=== PATIENT | male | born 1945 | race Caucasian/White ===

== ENCOUNTER 2023-06-28 11:09 | Outpatient (RCR) | payer MEDICARE, BC, SELFPAY | END 2023-06-28 23:59 | disposition home or self-care (01) | LOC: RPT 11:09 | PROVIDERS: ATTENDING PHYSICIAN Physical Medicine & Rehabilitation; FAMILY PHYSICIAN Student in an Organized Health Care Education/Training Program | DX: M48.061 Spinal stenosis, lumbar region without neurogenic claudication (principal); R26.89 Other abnormalities of gait and mobility; Z73.6 Limitation of activities due to disability; R26.2 Difficulty in walking, not elsewhere classified; M62.81 Muscle weakness (generalized) | CPT/HCPCS: 97110; 97112; 97163 ==

== ENCOUNTER → 2023-08-05 06:31 | Day surgery (SDC) | payer MEDICARE, BC, SELFPAY ==
[2023-08-05 09:39] LABS: Glucose - Point of Care 113 mg/dl (70-99)
== END ==
LOC: GI 06:31
PROVIDERS: ATTENDING PHYSICIAN Internal Medicine Gastroenterology
DX: Z12.11 Encounter for screening for malignant neoplasm of colon (principal); D12.3 Benign neoplasm of transverse colon; K63.5 Polyp of colon; K57.30 Diverticulosis of large intestine without perforation or abscess without bleeding; K64.0 First degree hemorrhoids
CPT/HCPCS: 45385; 45380; 88305; 82962

== ENCOUNTER → 2024-05-05 13:18 | Outpatient (REF) | payer MEDICARE, BC, SELFPAY | LOC: RAD 13:18 | PROVIDERS: ATTENDING PHYSICIAN Student in an Organized Health Care Education/Training Program; OTHER PHYSICIAN Psychiatry & Neurology Neurology | DX: Z77.018 Contact with and (suspected) exposure to other hazardous metals (principal) | CPT/HCPCS: 70030 ==

== ENCOUNTER → 2024-06-16 07:03 | Outpatient (REF) | payer MEDICARE, BC, SELFPAY | LOC: MRI 07:03 | PROVIDERS: ATTENDING PHYSICIAN Orthopaedic Surgery; FAMILY PHYSICIAN Student in an Organized Health Care Education/Training Program | DX: M25.511 Pain in right shoulder (principal) | CPT/HCPCS: 73221 ==

== ENCOUNTER 2025-01-01 12:08 | Outpatient (RCR) | payer MEDICARE, BC, SELFPAY | END 2025-01-01 23:59 | disposition home or self-care (01) | LOC: RST 12:08 | PROVIDERS: ATTENDING PHYSICIAN Psychiatry & Neurology Neurology; FAMILY PHYSICIAN Student in an Organized Health Care Education/Training Program | DX: R41.89 Other symptoms and signs involving cognitive functions and awareness (principal); F06.70 Mild neurocognitive disorder due to known physiological condition without behavioral disturbance; R41.841 Cognitive communication deficit; G91.2 (Idiopathic) normal pressure hydrocephalus | CPT/HCPCS: 96125; 97129; 97130 ==

== ENCOUNTER 2025-01-22 09:16 | Outpatient (RCR) | payer MEDICARE, BC, SELFPAY | END 2025-01-22 23:59 | disposition home or self-care (01) | LOC: RST 09:16 | PROVIDERS: ATTENDING PHYSICIAN Psychiatry & Neurology Neurology; FAMILY PHYSICIAN Student in an Organized Health Care Education/Training Program | DX: R41.89 Other symptoms and signs involving cognitive functions and awareness (principal); F06.70 Mild neurocognitive disorder due to known physiological condition without behavioral disturbance; R41.841 Cognitive communication deficit; G91.2 (Idiopathic) normal pressure hydrocephalus; Z73.6 Limitation of activities due to disability | CPT/HCPCS: 97129; 97130; 97550 ==

== ENCOUNTER 2025-02-20 10:53 | Outpatient (RCR) | payer MEDICARE, BC, SELFPAY | END 2025-02-20 23:59 | disposition home or self-care (01) | LOC: RST 10:53 | PROVIDERS: ATTENDING PHYSICIAN Psychiatry & Neurology Neurology | DX: R41.89 Other symptoms and signs involving cognitive functions and awareness (principal); F06.70 Mild neurocognitive disorder due to known physiological condition without behavioral disturbance; R41.841 Cognitive communication deficit; G91.2 (Idiopathic) normal pressure hydrocephalus; Z73.6 Limitation of activities due to disability | CPT/HCPCS: 97129; 97130 ==

== ENCOUNTER 2025-04-03 08:30 | Outpatient (RCR) | payer MEDICARE, BC, SELFPAY | END 2025-04-03 23:59 | disposition home or self-care (01) | LOC: RST 08:30 | PROVIDERS: ATTENDING PHYSICIAN Psychiatry & Neurology Neurology | DX: R41.89 Other symptoms and signs involving cognitive functions and awareness (principal); F06.70 Mild neurocognitive disorder due to known physiological condition without behavioral disturbance; R41.841 Cognitive communication deficit; G91.2 (Idiopathic) normal pressure hydrocephalus; Z73.6 Limitation of activities due to disability | CPT/HCPCS: 97129; 97130 ==